=== PATIENT | female | born 1980 | race Caucasian/White ===

== ENCOUNTER → 2018-12-18 | Outpatient (CLI) | payer OTHER ==
--- NOTE | 2018-12-19 07:13 | US ---
EXAMINATION TYPE: US venous doppler duplex UE LT DATE OF EXAM: 12/18/2018 COMPARISON: NONE CLINICAL HISTORY: M79.662 pain in left upper limb; R06.02 SOB. SIDE PERFORMED: Left Left Arm: Negative for DVT IMPRESSION: No evidence of DVT at this time.
--- NOTE | 2018-12-19 07:23 | CT ---
CT CHEST FOR PULMONARY EMBOLISM. EXAMINATION TYPE: CT angio chest DATE OF EXAM: 12/18/2018 INDICATION: SOB, Left upper arm pain CT DLP: 370 mGycm, Automated exposure control for dose reduction was used. CONTRAST: Patient injected with 100 mL of Isovue 370. COMPARISON: None TECHNIQUE: CT of the chest is performed on a spiral scan at 2 mm thick sections. Study is performed with intravenous contrast timed for evaluation for pulmonary embolism. This will limit additional po rtions of the evaluation. 3-D MIP images reconstructed by the technologist are reviewed on the compu ter in the coronal and sagittal planes. FINDINGS: No persistent filling defects are evident to suggest an acute pulmonary embolism. No mediastinal or hilar adenopathy enlarged by CT criteria is evident. The ascending aorta diameter at the level of the main pulmonary artery is 2.6 cm. The main pulmonary artery diameter at the bifur cation is 1.7 cm. Lung windows are clear. Limited CT section through the upper abdomen are unremarkable. IMPRESSIONS: 1. No acute pulmonary embolism.
== END | disposition home or self-care (01) ==
LOC: RADCTMAIN 16:17
PROVIDERS: ATTEND Podiatrist Foot & Ankle Surgery
DX: R06.02 Shortness of breath (principal); M79.622 Pain in left upper arm; Z88.1 Allergy status to other antibiotic agents
CPT/HCPCS: 93971; 71275; Q9967

== ENCOUNTER → 2019-01-06 | Outpatient (CLI) | payer OTHER ==
--- NOTE | 2019-01-06 14:44 | US ---
EXAMINATION TYPE: US venous doppler duplex LE LT DATE OF EXAM: 01/06/2019 2:08 PM COMPARISON: NONE CLINICAL HISTORY: 38-year-old female M79.662 Pain in left lower. SIDE PERFORMED: Left TECHNIQUE: The lower extremity deep venous system is examined utilizing real time linear array sonog jan with graded compression, doppler sonography and color-flow sonography. FINDINGS: VESSELS IMAGED: External Iliac Vein (EIV) Common Femoral Vein Deep Femoral Vein Greater Saphenous Vein * Femoral Vein Popliteal Vein Small Saphenous Vein * Proximal Calf Veins (* superficial vessels) Left Leg: Negative for DVT IMPRESSION: No evidence for DVT within the left lower extremity imaged from the groin to the upper calf.
== END | disposition home or self-care (01) ==
LOC: RADUSWWP 13:38
PROVIDERS: ATTEND Internal Medicine Hematology & Oncology
DX: R22.42 Localized swelling, mass and lump, left lower limb (principal); M79.662 Pain in left lower leg; Z88.1 Allergy status to other antibiotic agents

== ENCOUNTER → 2019-08-31 | Outpatient (CLI) | payer OTHER ==
--- NOTE | 2019-08-31 08:04 | US ---
EXAMINATION TYPE: US liver DATE OF EXAM: 08/31/2019 COMPARISON: NONE CLINICAL HISTORY: R94.5 Abnormal Liver function. Abnormal liver function test EXAM MEASUREMENTS: Liver Length: 14.1 cm Gallbladder Wall: 0.2 cm CBD: 0.3 cm Right Kidney: 9.3 x 4.3 x 4.5 cm Pancreas: visualized portions wnl, tail limited by overlying midline bowel gas Liver: Within normal limits of size. Homogeneous echotexture with appropriate visualization of the po rtal triads and hemidiaphragm. No solid or cystic mass is appreciated on today's exam. Gallbladder: wnl Evidence for sonographic Agustin's sign: yes CBD: wnl Right Kidney: wnl IMPRESSION: 1. Hepatic echotexture appears homogeneous despite transaminitis. 2. Sonographic Gaustin's sign is noted to be positive however no other sonographic evidence of acute c holecystitis is seen. HIDA scan with CCK could be considered to evaluate for biliary dyskinesia or ch ronic cholecystitis.
== END | disposition home or self-care (01) ==
LOC: RADUSWWP 07:30
PROVIDERS: ATTEND Internal Medicine Hematology & Oncology
DX: K76.89 Other specified diseases of liver (principal); Z88.1 Allergy status to other antibiotic agents
CPT/HCPCS: 76705

== ENCOUNTER → 2021-10-17 | Outpatient (CLI) | payer OTHER ==
--- NOTE | 2021-10-18 07:40 | US ---
EXAMINATION TYPE: US abdomen limited DATE OF EXAM: 10/17/2021 COMPARISON: NONE CLINICAL HISTORY: R10.84 Abdominal pain. EXAM MEASUREMENTS: Liver Length: 11.6 cm Gallbladder Wall: 0.2 cm CBD: 0.2 cm Right Kidney: 9.6x 3.6 x 5.0 cm Pancreas: wnl as seen, tail somewhat obscured by overlying bowel gas Liver: wnl Gallbladder: wnl Evidence for sonographic Agustin's sign: no CBD: wnl Right Kidney: wnl Visualized pancreas within normal limits. Visualized liver unremarkable. Gallbladder appears within n ormal limits. No right-sided hydronephrosis. IMPRESSION: No acute findings are evident.
--- NOTE | 2021-10-18 07:46 | US ---
EXAMINATION TYPE: US pelvis complete transvag DATE OF EXAM: 10/17/2021 COMPARISON: NONE CLINICAL HISTORY: R10.84 Abdominal pain. Pelvic pain. TECHNIQUE: Transvaginal (TV) and Transabdominal (TA) . Transabdominal sonographic images of the pel vis were acquired. Transvaginal sonographic images were medically necessary to better assess the fol lowing anatomy: EXAM MEASUREMENTS: Uterus: 12.7 x 5.5 x 6.8 cm Endometrial Stripe: obscured by large fibroid Right Ovary: 3.4 x 2.4 x 2.3 cm Left Ovary: Obscured by overlying bowel gas 1. Uterus: fibroid measuring 5.7 x 6.8 x 5.6cm 2. Endometrium: obscured by large fibroid 3. Right Ovary: wnl 4. Left Ovary: Obscured by overlying bowel gas 5. Bilateral Adnexa: wnl 6. Posterior cul-de-sac: wnl Large posterior intramural fibroid up to at least 6.6 cm long axis has mass effect on the endometrium . No free fluid in pelvis. Incidental 2.1 cm thin-walled cyst in the left pelvis presumed periphery of the left ovary towards en d of study. IMPRESSION: Prominent fibroid uterus.
== END | disposition home or self-care (01) ==
LOC: RADUSWWP 15:02
PROVIDERS: ATTEND Internal Medicine Hematology & Oncology
DX: D25.9 Leiomyoma of uterus, unspecified (principal)
CPT/HCPCS: 76705; 76830; 76856